=== PATIENT | female | born 1950 | race Caucasian/White ===

== ENCOUNTER 2020-03-24 08:41 | Day surgery (SDC) | payer MEDICARE, BC ==
[~2020-03-24] VITALS: Ht 160 cm; Wt 63.5 kg
--- NOTE | ~2020-03-24 | OP ---
PATIENT NAME: AMADO ROSAS MEDICAL RECORD: [id number] :48 LOCATION:D.MS ADMISSION DATE: SURGEON: JAKOB MARY MD DATE OF OPERATION: 03/25/2020 PREOPERATIVE DIAGNOSES: 1. Acute appendicitis with localized peritonitis. 2. DVT. POSTOPERATIVE DIAGNOSES: 1. Acute appendicitis with localized peritonitis. 2. DVT. PROCEDURE: Laparoscopic appendectomy. SURGEON: Jakob Mary M.D. REPORT OF PROCEDURE: The patient's abdomen was prepped and draped in sterile fashion. A cutdown was made on the superior aspect of the umbilicus. The 0 Vicryls were placed in the fascia bilaterally and the fascia was incised with a 15-blade. I then bluntly entered the peritoneal cavity and placed a 12 mm Stephanie port. Under direct visualization, a 5 mm trocar was placed in the left lower quadrant and another was placed in the suprapubic region. The patient's appendix was visualized and noted to be inflamed with no signs of gangrene or perforation. A window was made in the mesoappendix and the mesoappendix was transected with a 60 white load Endo NORA stapler. The base of the appendix was transected near the cecum with a 60 blue load Endo NORA stapler. The appendix was then placed into an Endo Catch bag. We irrigated out the right lower quadrant and any bleeding that was found was treated with electrocautery. The ports and insufflation were then removed and the appendix was taken out through the umbilicus. The umbilical fascia was closed with interrupted 0 Vicryls times 4. The wounds were irrigated out with normal saline and infused with 10 mL of 0.25% Marcaine with epinephrine. The skin incisions were all closed with subcutaneous 5-0 Monocryl and dressed appropriately. COMPLICATIONS: None. CONDITION: Stable. ANESTHESIA: General endotracheal and local. BLOOD LOSS: Minimal. NTS:[id number] Voice Confirmation ID: [id number] DOCUMENT ID: [id number] JAKOB MARY MD CC: [id number] DICTATION DATE: 03/25/20956 [employer]OL SYSTEMS SPECIALIST: 03/25/202056 [facility] 03/25/20 [place] [address]
[2020-03-24] MEDS ORDERED: XARELTO20 MG PO (08:52)
[2020-03-24] MEDS ORDERED: PRAVACHOL20 MG PO (08:52)
[2020-03-24] MEDS ORDERED: SYNTHROID88 MCG PO (08:53)
[2020-03-24] MEDS ORDERED: LEXAPRO5 MG PO (08:54)
[2020-03-24] MEDS ORDERED: CORGARD40 MG PO (08:54)
[2020-03-24] MEDS ORDERED: ROCALTROL0.25 MCG PO (08:54)
[2020-03-24 09:20] LABS: BASOPHILS 0.2 % (0-2); HEMATOCRIT 34.6 % (36.0-48.0); HEMOGLOBIN 11.9 g/dL (12-16); IMMATURE GRANULOCYTES 0.2 % (0-5); MCH 31.2 pg (26.0-34.0); MCHC 34.4 g/dL (31.0-37.0); MCV 90.6 fL (80.0-100.0); MEAN PLATELET VOLUME 10.2 fL (7.4-10.4); MONOCYTES 8.2 % (2-11); NEUTROPHILS 83.4 % (40-80); RBC 3.82 10x6/uL (4.00-5.40); RDW 13.6 % (11.5-14.5); WBC 9.2 10x3/uL (4.8-10.8)
[2020-03-24 09:34] LABS: CALC OSMOLALITY 274 mosm/kg (275-300); CALCIUM 9.9 mg/dL (8.5-10.1); CARBON DIOXIDE 26.8 mmol/L (21.0-32.0); CHLORIDE - SERUM 100 mmol/L (98-107); CREATININE - SERUM 1.8 mg/dL (0.6-1.3); GLUCOSE 123 mg/dL (74-106); POTASSIUM - SERUM 3.7 mmol/L (3.5-5.1); SODIUM 136 mmol/L (136-145); UREA NITROGEN 19 mg/dL (7-18); eGFR NON AFRICAN AMERICAN 29 mL/min (90-120)
[2020-03-24 09:43] LABS: ALBUMIN 3.5 g/dL (3.4-5.0); ALKALINE PHOSPHATASE 60 U/L (30-120); ALT (SGPT) 19 U/L (10-68); AMYLASE - SERUM 103 U/L (25-115); LIPASE 833 U/L (73-393); PROTEIN - SERUM 7.4 g/dL (6.4-8.2); TROPONIN-I < 0.017 ng/mL (0.000-0.060)
[2020-03-24 09:46] LABS: PLATELET COUNT 142 10x3/uL (130-400)
[2020-03-24 11:10] LABS: BILIRUBIN NEGATIVE (NEGATIVE); GLUCOSE NEGATIVE (NEGATIVE); KETONE NEGATIVE (NEGATIVE); NITRITE NEGATIVE (NEGATIVE); SPECIFIC GRAVITY 1.015 (1.005-1.020); UROBILINOGEN NORMAL (NORMAL)
[2020-03-24 11:11] LABS: RED CELLS - URINE 0-5 /hpf (0-5); WHITE CELLS - URINE 25-50 /hpf (NEGATIVE)
[2020-03-24 11:12] LABS: BACTERIA FEW /hpf (NEGATIVE); EPITHELIAL CELLS 0-5 /hpf (0-5)
[2020-03-24 13:54] VITALS: BP 125/59
--- NOTE | 2020-03-24 14:07 | NUR ---
ARRIVED TO UNIT PER STRETCHER, ALONG, IV INFUSING C/O ABD PAIN AT A 6, RESTING IN BED, CONT TO MONITOR PAIN
[2020-03-24 16:20] VITALS: BP 111/54
[2020-03-24 20:00] VITALS: BP 127/61
--- NOTE | 2020-03-24 20:17 | NUR ---
ASSISTED PATIENT TO AND FROM RESTROOM. PATIENT VOIDED. PATIENT DENIES OTHER NEEDS AT THIS TIME. BED IN LOWEST POSITION AND CALL LIGHT WITHIN REACH. ENCOURAGED THE PATIENT TO CALL IF SHE HAS NEEDS. WILL CONTINUE TO MONITOR.
[2020-03-25] VITALS (15 sets, daily range): BP systolic 86–128; BP diastolic 36–78; Ht 160 cm; Wt 63.5 kg
[2020-03-25 07:23] LABS: BASOPHILS 0.3 % (0-2); EOSINOPHILS 1.2 % (0-7); HEMATOCRIT 28.5 % (36.0-48.0); IMMATURE GRANULOCYTES 0.1 % (0-5); LYMPHOCYTES 10.4 % (15-50); MCH 30.8 pg (26.0-34.0); MEAN PLATELET VOLUME 9.9 fL (7.4-10.4); MONOCYTES 5.3 % (2-11); NEUTROPHILS 82.7 % (40-80); RDW 13.9 % (11.5-14.5); WBC 7.8 10x3/uL (4.8-10.8)
[2020-03-25 07:26] LABS: HEMOGLOBIN 9.4 g/dL (12-16); MCV 93.4 fL (80.0-100.0); PLATELET COUNT 109 10x3/uL (130-400); RBC 3.05 10x6/uL (4.00-5.40)
[2020-03-25 07:51] LABS: ANION GAP 12.9 mmol/L (8-16); BILIRUBIN - TOTAL 0.78 mg/dL (0.2-1.3); CALCIUM 8.3 mg/dL (8.5-10.1); CARBON DIOXIDE 22.9 mmol/L (21.0-32.0); CREATININE - SERUM 1.4 mg/dL (0.6-1.3); POTASSIUM - SERUM 3.8 mmol/L (3.5-5.1); PROTEIN - SERUM 5.8 g/dL (6.4-8.2)
[2020-03-25 07:52] LABS: ALBUMIN 2.5 g/dL (3.4-5.0)
--- NOTE | 2020-03-25 08:30 | NUR ---
ASSESSMENT PER FLOW SHEET. PATIENT IS WITHOUT DISTRESS.PRE MEDS ORDERED. AT BEDSIDE AND TOOK PATIENTS JEWELRY. CALL LIGHT IN REACH
--- NOTE | 2020-03-25 08:38 | NUR ---
TO OR VIA BED
[2020-03-25] MEDS ORDERED: HYDROCODON-ACE1 EA10 PO (09:53)
--- NOTE | 2020-03-25 10:56 | NUR ---
BACK IN ROOM. PATIENT WITHOUT DISTRESS.VSS,SEE GRAPHICS
--- NOTE | 2020-03-25 11:00 | NUR ---
LAP SITES X3 INTACT WITH MINIMAL DRAINAGE
--- NOTE | 2020-03-25 14:51 | NUR ---
BP LOW, ORDERS RECIEVED AND INITIATED. 500ML BOLUS GIVEN OUT OF 1 LITER NS THAT HANGING ON IV PUMP
--- NOTE | 2020-03-25 15:15 | NUR ---
LEFT UNIT VIA WHEEELCHAIR FOR TRANSPORT HOME
--- NOTE | 2020-03-25 16:39 | NUR ---
BP 105/55 AFTER BOLUS. SATS 94% ON ROOM AIR. PATIENT HAS VOIDED AND READY TO GO HOME
--- NOTE | 2020-03-25 16:56 | NUR ---
DISCHARGE INSTRUCTIONS,STATES UNDERSTANDING.IV DCD WITH CATH TIP INTACT.
--- NOTE | 2020-03-25 17:15 | NUR ---
LEFT UNIT VIA WHEELCHAIR FOR TRANSPORT HOME
== END 2020-03-25 17:15 | disposition home or self-care (01) ==
LOC: D.ER 08:41 → D.MS 08:41 → D.ER 12:50 → EDSTATUS 12:51 → D.MS 03-25 17:15
PROVIDERS: Family Medicine; ATTEND Surgery
DX: K35.30 Acute appendicitis with localized peritonitis, without perforation or gangrene (principal); I82.409 Acute embolism and thrombosis of unspecified deep veins of unspecified lower extremity; Z86.73 Personal history of transient ischemic attack (TIA), and cerebral infarction without residual deficits; I10 Essential (primary) hypertension; K21.9 Gastro-esophageal reflux disease without esophagitis